=== PATIENT | female | born 1965 | race Caucasian/White ===

== ENCOUNTER 2019-03-25 09:30 | Outpatient (CLI) | payer BC, SELFPAY ==
--- NOTE | 2019-03-25 09:04 | DI.RAD_ITS ---
EXAM: XR KNEE RT and left 2V AP,LAT and Merchant view INDICATION: Pain. COMPARISON: XR KNEE LT 2V AP,LAT from 03/25/2019 XR KNEES MERCHANT ONLY from 03/25/2019 TECHNIQUE: 2D digital imaging was performed. FINDINGS: Right knee: Periarticular spurring is seen involving all 3 joint compartments. There is mild narrowing of the fe moral tibial joint. No acute fracture or dislocation is present. No suspicious lytic or sclerotic l esions are present. There is a well corticated osseous density lateral to the patella. This likely represents an old injury. There is a small suprapatellar joint effusion. Left knee: There is mild spurring of the posterior patella. Subchondral cysts are seen at the articular surface of the patella. There is an enthesophyte at the superior patella. The articular surfaces are other garcia well maintained. There is a tiny osseous density at the inferior aspect of the patella which ma y represent an old injury. No acute fracture or dislocation is seen. Bones are normally mineralized . A small suprapatellar joint effusion is present. There is normal alignment of the patella. IMPRESSION: Bilateral mild osteoarthritis.
== END 2019-03-25 09:50 ==
PROVIDERS: Visit Provider Student in an Organized Health Care Education/Training Program
DX: M25.561 Pain in right knee (principal); M25.562 Pain in left knee; M17.0 Bilateral primary osteoarthritis of knee; M25.461 Effusion, right knee; M25.462 Effusion, left knee
CPT/HCPCS: 73565; 73560

== ENCOUNTER 2020-03-17 18:26 | Outpatient (REF) | payer BC, SELFPAY ==
[2020-03-17 11:25] LABS: Abs Immature Grans 0.02 10^3/uL (0.0-0.06); Absolute Basophil Count 0.03 10^3/uL (0.0-0.2); Absolute Monocyte Count 0.36 10^3/uL (0.1-0.8); Absolute Neutrophil Count 2.57 10^3/uL (1.2-6.7); Basophils % 0.7; Eosinophils % 2.3; HCT 39.8 % (36.0-46.0); HGB 13.2 g/dL (11.2-15.7); Immature Grans % 0.5; MCH 29.2 pg (27.0-33.0); MCHC 33.2 % (32.0-36.0); MCV 88.1 fL (80-95); Monocytes % 8.4; Neutrophils % 60.1; Nucleated RBC 0 %; Platelet Count 244 10^3/uL (130-400); RBC 4.52 10^6/uL (3.93-5.22); RDW 12.3 % (11.7-14.6); RDW-SD 39.3 fL; WBC 4.28 10^3/uL (4.4-10.8)
[2020-03-17 11:33] LABS: ALT 30 U/L (14-59); AST 24 U/L (15-37); Albumin 3.9 g/dL (3.4-5.0); Alkaline Phosphatase 77 U/L (46-116); BUN 15 mg/dL (7-18); Bilirubin, Total 0.4 mg/dL (0.2-1.0); CREATININE 0.83 mg/dL (0.55-1.02); Calcium 9.2 mg/dL (8.5-10.1); Chloride 106 mmol/L (98-107); Glucose 102 mg/dL (74-106); Potassium 3.8 mmol/L (3.5-5.1); Sodium 141 mmol/L (136-145); Total Protein 7.5 g/dL (6.4-8.2)
== END 2020-03-17 18:46 ==
LOC: LBN 18:26
PROVIDERS: PCP Nurse Practitioner Adult Health; Visit Provider Surgery
DX: R19.5 Other fecal abnormalities (principal); Z12.11 Encounter for screening for malignant neoplasm of colon
CPT/HCPCS: 80053; 85025

== ENCOUNTER 2020-03-29 02:50 | Outpatient (CLI) | payer BC, SELFPAY ==
[2020-03-30 17:20] LABS: COVID-19 RT-PCR UVMMC Result Negative (Negative)
== END 2020-03-29 03:10 ==
PROVIDERS: PCP Nurse Practitioner Adult Health; Visit Provider Surgery
DX: Z11.52 Encounter for screening for COVID-19 (principal); Z01.818 Encounter for other preprocedural examination
CPT/HCPCS: U0003

== ENCOUNTER 2020-04-01 07:10 | Day surgery (SDC) | payer BC, SELFPAY ==
[2020-04-01 07:30] VITALS: BP 123/79; PULSE 77; RESP 14; TEMP 36.4; O2SAT 99
[2020-04-01] MEDS: Lactated Ringers 1,000 ML 80 ML IV (08:00)
[2020-04-01 09:35] VITALS: BP 115/74; PULSE 65; RESP 14; TEMP 36.6; O2SAT 97
--- NOTE | 2020-04-10 21:10 | W.COLOREPORT ---
Date of service: 04/04/20 Time of Service: 09:00 Colonoscopy Report Date of procedure: 04/04/20 Pre-op diagnosis general: +Cologuard Post-op diagnosis procedure note: other (divertic ) Surgeon: Anne Martinez Anesthesia proc note operative: GETA Estimated blood loss (mL): 0 Pathology: none sent Complications: None Disposition: same day Prep: Miralax/Dulcolax Retraction Time: 10 mins Procedure Description: After informed consent was obtained the patient was taken to the procedure room and placed in a left decubitous position. Monitors were applied and a time out was done. The patients name, date of , procedure, allergies to medications and metal in their body was reviewed. The patient was then sedated. Once sedated and comfortable a rectal exam was done. External exam was normal. Internal exam revealed a normal sphincter tone and no palpable masses. The scope was then introduced and retrofelexed. no internal hemorrhoids were identified. The scope was then advanced to the cecum w/out difficulty. The TI and appendiceal orifice were identified. The prep was good. The scope was then slowly retracted over 10 minutes back into the rectum. There were no polyps noted. She does have diverticula that are medium size, and moderate in severity. They do extend all the way over to the right side of the colon. There are no signs of active bleeding or infection. The scope was removed and the patient was woken up and taken back to Same day surgery in stable condition. The patient tolerated the procedure well and there were no immediate complications. Follow up: The patient should follow up in 10 years unless they develop changes in bowel habits or other new gastrointestinal complaints.
--- NOTE | 2020-04-10 21:13 | W.PM.DSUDISC ---
Discharge Plan Disposition Patient Disposition: HOME Condition: Good Discharge Details Reason For Visit: colon scope Attending Provider: Anne Martinez Primary Care Provider: Lety Bearden Home Meds and New Rx's Prescriptions: Discontinued polyethylene glycol 3350 17 gram/dose powder 238 g PO ONCE Qty: 238 RF: 0 bisacodyl [Dulcolax (bisacodyl)] 5 mg tablet,delayed release (DR/EC) 5 mg PO ONCE Qty: 4 RF: 0 No Action clonazepam 0.5 mg tablet 0.5 mg PO QHS PRN (Reason: insomnia prn) Qty: 30 RF: 1 Discharge Instructions Additional Instructions: Findings:no polyps diverticular dx Follow up:repeat in 10 yrs time Please call if you develop: fevers >101.5 Nausea or Vomiting Abdominal pain that is not transient DAY SURGERY UNIT POST COLONOSCOPY INSTRUCTIONS 1. Because there will be medication in your system for the next 24 hours, you may feel a little sleepy. Your coordination will be affected. Therefore: a. Do not drive or operate dangerous equipment for 24 hours. b. Do not drink alcohol beverages for 24 hours (not even beer). c. Plan to go home and rest for the day. 2. Generally there are no restrictions on your activity after a day or so has gone by, but you may feel a bit fatigued for a few days. 3 After you arrive home you may have a light meal and return to a normal diet as you can tolerate it without feeling sick to your stomach. 4. After surgery, you may feel pain or discomfort. This should be only transient, but if it persists please contact your doctor. 5. If there are any questions regarding the findings of your procedure, please feel free to contact your doctor. 6. If you are unable to contact your doctor with a problem, contact the hospital at [phone]. 7. Continue all your regular medications unless directed otherwise. I understand the above instructions and have no questions. Signature of Patient or Responsible Adult Escort Date/Time Name of Responsible Adult Escort Signature of Nurse Date/Time Activity:: No lifting over 10 pounds or strenuous activity x24 hours Diet:: Small light meals x24 hours. Discharge Orders Discharge Orders: Discharge Order (Routine); Ordered 04/01/20 Ordered By: Anne Martinez Discharge Data Discharge Date/Time-TO BE ENTERED AT DEPARTURE: 04/01/20 10:40 DS: Diagnosis Discharge Diagnosis (1) Diverticula of colon: Status: Acute
== END 2020-04-01 10:40 | disposition home or self-care (01) ==
PROVIDERS: PCP Nurse Practitioner Adult Health; Visit Provider Surgery
PROC: 0DJD8ZZ Inspection of Lower Intestinal Tract, Via Natural or Artificial Opening Endoscopic (ICD-10-PCS; CPT 45378; principal; 2020-04-01 08:15)
DX: R19.5 Other fecal abnormalities (principal); K57.30 Diverticulosis of large intestine without perforation or abscess without bleeding
CPT/HCPCS: 45378; J2001

== ENCOUNTER 2021-03-15 01:22 | Outpatient (CLI) | payer BC, SELFPAY ==
--- NOTE | 2021-03-15 08:30 | DI.MAMMO_ITS ---
Exam(s) MAMMO SCREENING EXAM: MAMMO SCREENING CLINICAL HISTORY: screening,z12.39 TECHNIQUE: Mammograms were interpreted according to the usual protocol including computer analysis w [facility] CAD system, tomosynthesis and C-view imaging. COMPARISON: FINDINGS: The breasts are heterogeneously dense. No dominant mass is identified in either breast. There is a geographic grouping of numerous microcalcifications of the upper outer quadrant of the right breast, this contains some linear and branching forms as well as small rounded calcifications. This is new s sunitha the prior examination of July 2016. Findings are highly suspicious for breast carcinoma. No other significant change from the prior examination. No additional groupings of microcalcificatio n. Additional evaluation with magnification views of the right breast and right breast ultrasound is rec ommended. IMPRESSION: Highly suspicious new group of microcalcifications seen, magnification views of the right breast and right breast ultrasound recommended to complete the evaluation. BI-RADS Category 0 - Assessment Incomplete: Need additional imaging evaluation Breast Density - Category C - Heterogeneously dense
== END 2021-03-15 01:42 ==
PROVIDERS: PCP Nurse Practitioner Adult Health; Visit Provider Nurse Practitioner Adult Health
DX: Z12.31 Encounter for screening mammogram for malignant neoplasm of breast (principal); R92.8 Other abnormal and inconclusive findings on diagnostic imaging of breast
CPT/HCPCS: 77063; 77067

== ENCOUNTER 2021-03-28 00:50 | Outpatient (CLI) | payer BC, SELFPAY ==
--- NOTE | 2021-03-28 | DI.MAMMO_ITS ---
Exam(s) MG MAMMO SCREEN CALL BACK UNI US BREAST RT COMPLETE EXAM: MG MAMMO SCREEN CALL BACK UNI -RIGHT AND COMPLETE RIGHT BREAST ULTRSOUND CLINICAL HISTORY: F/U MAMMO,NEW MICROCALCIFICATIONS. TECHNIQUE: Unilateral spot mammographic images obtained with 2Dand utilizing computer aided detectio n (CAD). . Complete RIGHT breast Ultrasound was also performed, including all 4 quadrants, the retroareolar terence on, and the ipsilateral axilla. COMPARISON: Prior mammograms were reviewed. This additional imaging was performed due to findings described on the recent screening mammogram of 03/15/2021. FINDINGS: Additional mammographic views performed todayreveal the microcalcification the upper outer quadrant r ight breast to be suspicious. Ultrasound performed today reveals no significant focal ultrasound findings in all 4 quadrants.. No axillary adenopathy IMPRESSION: 1. Right breast microcalcification group is suspicious for malignancy. Stereotactic biopsy is recomm ended. The patient was informed by myself of these findings and recommendations prior to leaving the departm ent today. Also called to her physician's office. Report was given to nurse practitioner Barb Enciso BI-RADS category: 4 - suspicious. Biopsy recommended Breast Density - Category C - Heterogeneously dense Breast density Category C or D implies that the patient has dense breast tissue. Dense breast tissue can make it harder to find cancer on a mammogram. Dense breast tissue is also associated with an incr eased risk of breast cancer. This information about the result of the mammogram report was provided to the patient to raise their awareness. Use this report when you speak with the patient about their risks for breast cancer, which includes their family history. At that time, you may recommend additional screening tests (Ultrasoun d or MRI) as these tests may add significant information. A negative radiographic report should not delay biopsy if a dominant or clinically suspicious mass is present. Up to ten percent of cancers are not identified on mammography. A negative report may reinforce clinical impression. Adenosis and dense breasts may obscure an underlying neoplasm. False positive reports average 6 to 10%. Patient will receive a letter notifying them of these results.
== END 2021-03-28 01:10 ==
PROVIDERS: PCP Nurse Practitioner Adult Health; Visit Provider Nurse Practitioner Adult Health
DX: R92.8 Other abnormal and inconclusive findings on diagnostic imaging of breast (principal); R92.0 Mammographic microcalcification found on diagnostic imaging of breast
CPT/HCPCS: 76642; 77063; 77067

== ENCOUNTER 2022-03-22 10:14 | Outpatient (REF) | payer BC, SELFPAY ==
--- NOTE | 2022-03-22 09:45 | PAPFT_PTH ---
PATIENT: Xuan Wing LOC: [facility] U#:[id number] AGE/SX: 57/F ROOM: RE03/22/[address]: Lety Bearden APRN : 1965 BED: DIS: 03/22/2022 SPEC #: [id number] RECD: 03/22/22 18:25 STATUS: LANG REIsabella #: [id number] GIANNA: 03/22/22 09:[address]: Lety Bearden DEPT: [facility] Cytology RECD BY: Nidia Flores Tissues: 1 - CX/ENDOCX FOR PAP SMEARS Procedures: PAP THIN PREP/UVM Screening HPV DNA PROBE Comments: [id number]
== END 2022-03-22 10:15 | disposition home or self-care (01) ==
LOC: LBN 10:14
PROVIDERS: PCP Nurse Practitioner Adult Health; Visit Provider Nurse Practitioner Adult Health
DX: Z12.4 Encounter for screening for malignant neoplasm of cervix (principal); Z11.51 Encounter for screening for human papillomavirus (HPV)
CPT/HCPCS: 88142; 87624

== ENCOUNTER → 2023-08-08 01:46 | Outpatient (CLI) | payer BC, SELFPAY ==
--- NOTE | 2023-08-08 | DI.MAMMO_ITS ---
Exam(s) MG MAMMO SCREENING 60 MIN DUR EXAM: MG MAMMO SCREENING 60 MIN DUR CLINICAL HISTORY: S/P LUMPECTOMY/XRT TO RT BREAST 2021 FOR BREAST CANCER, SCREENING, Z12.31 TECHNIQUE: Bilateral full field digital CC and MLO mammographic images were obtained with 3D tomosyn thesis and utilizing computer aided detection (CAD). COMPARISON: Available for comparison. FINDINGS: Masses/Architectural Distortion: The patient is status post right lumpectomy. No suspicious masses a re seen. No new areas of architectural distortion are identified. Microcalcifications: No suspicious pleomorphic-type are seen. Skin Thickening/Nipple Retraction: None. IMPRESSION: 1. No significant interval change with no specific features of malignancy noted. 2. Unless there is more urgent need, screening mammography is recommended, as per [employer] guidelines. 3. Findings were discussed with the patient on the date of the examination. BI-RADS Category 2 - Benign Findings Breast Density - Category C - Heterogeneously dense Breast density category C or D implies that the patient has dense breast tissue. Dense breast tissue is very common and is not abnormal but dense breast tissue can make it harder to find cancer on a ma mmogram. Also, dense breast tissue may increase their breast cancer risk. This information about the result of the mammogram report was provided to the patient to raise their awareness. Use this report when you speak with the patient about their risks for breast cancer, which includes their family hist ory. At that time, you may recommend for more screening tests (Ultrasound or MRI) as they might be us eful based on their risk. A negative radiographic report should not delay biopsy if a dominant or clinically suspicious mass is present. Up to ten percent of cancers are not identified on mammography. A negative report may reinforce clinical impression. Adenosis and dense breasts may obscure an underlying neoplasm. False positive reports average 6 to 10%. Patient will receive a letter notifying them of these results.
== END ==
PROVIDERS: PCP Nurse Practitioner Adult Health; Visit Provider Radiology Radiation Oncology
DX: Z12.31 Encounter for screening mammogram for malignant neoplasm of breast (principal)
CPT/HCPCS: 77063; 77067

== ENCOUNTER 2024-08-10 02:38 | Outpatient (CLI) | payer BC, SELFPAY ==
--- NOTE | 2024-08-10 07:30 | DI.MAMMO_ITS ---
Exam(s) MG MAMMO SCREENING 60 MIN DUR EXAM: MG MAMMO SCREENING 60 MIN DUR CLINICAL HISTORY: breast cancer screening,H/O DUCTAL CA IN SITU,Z86.000 TECHNIQUE: Bilateral full field digital CC and MLO mammographic images were obtained with 3D tomosyn thesis and utilizing computer aided detection (CAD). COMPARISON: Available for comparison. FINDINGS: Masses/Architectural Distortion: No suspicious masses or areas of architectural distortion are presen t. There again seen postsurgical changes of a right breast lumpectomy. Microcalcifications: No suspicious pleomorphic-type are seen. Skin Thickening/Nipple Retraction: None. IMPRESSION: 1. No significant interval change with no specific features of malignancy noted. 2. Unless there is more urgent need, screening mammography is recommended, as per [employer] guidelines. 3. The findings were discussed with the patient on the date of the examination. BI-RADS Category 2 - Benign Findings Breast Density - Category B - There are scattered areas of fibroglandular density. Breast density Category C or D implies that the patient has dense breast tissue. Dense breast tissue can make it harder to find cancer on a mammogram. Dense breast tissue is also associated with an incr eased risk of breast cancer. This information about the result of the mammogram report was provided to the patient to raise their awareness. Use this report when you speak with the patient about their risks for breast cancer, which includes their family history. At that time, you may recommend additional screening tests (Ultrasoun d or MRI) as these tests may add significant information. A negative radiographic report should not delay biopsy if a dominant or clinically suspicious mass is present. Up to ten percent of cancers are not identified on mammography. A negative report may reinforce clinical impression. Adenosis and dense breasts may obscure an underlying neoplasm. False positive reports average 6 to 10%. Patient will receive a letter notifying them of these results.
== END 2024-08-10 02:58 ==
LOC: DI 02:38
PROVIDERS: PCP Nurse Practitioner Adult Health; Visit Provider Nurse Practitioner Adult Health
DX: Z86.000 Personal history of in-situ neoplasm of breast (principal); Z12.31 Encounter for screening mammogram for malignant neoplasm of breast; R92.323 Mammographic fibroglandular density, bilateral breasts; D24.1 Benign neoplasm of right breast
CPT/HCPCS: 77063; 77067